=== PATIENT | female | born 1980 | race Caucasian/White ===

== ENCOUNTER 2017-10-31 13:32 | Emergency (ER) | payer OTHER ==
[2017-10-31] MEDS: ACETAMINOPHEN 500 MG TAB PO (15:05)
[2017-10-31] MEDS: IPRATROPIUM (NEB) 0.5 MG/2.5 ML AMP NEB (15:13)
[2017-10-31] MEDS: ALBUTEROL 0.083% (NEB) 2.5 MG/3 ML AMP NEB (15:13)
[2017-10-31 15:37] LABS: ADD UMIC NO; UR ASCORBIC ACID NEGATIVE (NEGATIVE); UR BILIRUBIN (Dip) NEGATIVE (NEGATIVE); UR BLOOD (Dip) NEGATIVE (NEGATIVE); UR CLARITY CLEAR (CLEAR); UR COLOR STRAW (YELLOW); UR GLUCOSE (Dip) NEGATIVE (NEGATIVE); UR KETONES (Dip) NEGATIVE (NEGATIVE); UR LEUKOCYTE ESTERASE (Dip) NEGATIVE Leu/ul (NEGATIVE); UR NITRITE (Dip) NEGATIVE (NEGATIVE); UR SPECIFIC GRAVITY (Dip) 1.009 (1.003-1.030); UR TOTAL PROTEIN (Dip) NEGATIVE (NEGATIVE); UR UROBILINOGEN (Dip) NEGATIVE (NEGATIVE)
== END 2017-10-31 16:15 | disposition home or self-care (01) ==
LOC: FTE 13:32
DX: J06.9 Acute upper respiratory infection, unspecified (principal); J45.909 Unspecified asthma, uncomplicated; I10 Essential (primary) hypertension
CPT/HCPCS: 71045; 81003; 94664; 99284-25

== ENCOUNTER 2017-11-08 21:02 | Emergency (ER) | payer OTHER ==
[2017-11-09 00:16] LABS: URINE BLOOD (Dip) POC Negative (NEGATIVE); URINE GLUCOSE (Dip) POC Negative (NEGATIVE); URINE KETONES (Dip) POC Negative (NEGATIVE); URINE LEUKOCYTE EST (Dip) POC Negative (NEGATIVE); URINE NITRITE (Dip) POC Negative (NEGATIVE); URINE TOTAL PROTEIN POC Negative (NEGATIVE)
[2017-11-09] MEDS: MECLIZINE 12.5 MG TAB PO (00:17)
== END 2017-11-09 01:27 | disposition home or self-care (01) ==
LOC: FTE 11-09 01:27
DX: R42 Dizziness and giddiness (principal); I10 Essential (primary) hypertension; J45.909 Unspecified asthma, uncomplicated
CPT/HCPCS: 81003; 81025; 99282

== ENCOUNTER 2018-09-23 08:15 | Day surgery (SDC) | payer OTHER | END 2018-09-23 16:46 | disposition home or self-care (01) | LOC: GIL 08:15 | DX: D12.5 Benign neoplasm of sigmoid colon (principal); D12.3 Benign neoplasm of transverse colon; K64.8 Other hemorrhoids; K29.30 Chronic superficial gastritis without bleeding; I10 Essential (primary) hypertension; J45.909 Unspecified asthma, uncomplicated; E66.01 Morbid (severe) obesity due to excess calories; Z68.41 Body mass index [BMI] 40.0-44.9, adult | CPT/HCPCS: 43239; 88305; 88312 ==

== ENCOUNTER 2018-10-15 05:22 | Day surgery (SDC) | payer OTHER ==
[2018-10-15] MEDS: LACTATED RINGER'S 1,000 ML IV (06:43)
[2018-10-15] MEDS ORDERED: DESFLURANE 15 MIN (07:30)
[2018-10-15] MEDS ORDERED: FENTAnyl 50 MCG/ML VIAL (07:34)
[2018-10-15] MEDS ORDERED: MIDAZOLAM 1 MG/ML 2 ML INJ (07:34)
[2018-10-15] MEDS ORDERED: ROCURONIUM 50 MG INJ (07:34)
[2018-10-15] MEDS ORDERED: METOCLOPRAMIDE 10 MG INJ (07:34)
[2018-10-15] MEDS ORDERED: PROPOFOL 20 ML (07:34)
[2018-10-15] MEDS ORDERED: ROPIVACAINE 0.2% 20 ML VIAL (07:52)
[2018-10-15] MEDS ORDERED: LIDOCAINE 2% (SDV) 5 ML INJ (07:56)
[2018-10-15] MEDS ORDERED: CLINDAMYCIN 600 MG/D5W (PMX) 50 ML IVPB (07:56)
[2018-10-15] MEDS ORDERED: SUGAMMADEX SODIUM 200 MG/2 ML VIAL IV (08:47)
[2018-10-15] MEDS ORDERED: ONDANSETRON 4 MG INJ (08:47)
[2018-10-15] MEDS ORDERED: GLYCOPYRROLATE 0.4 MG INJ (08:49)
[2018-10-15] MEDS ORDERED: NEOSTIGMINE 3 MG/3 ML SYRINGE (08:49)
[2018-10-15] MEDS ORDERED: HYDROmorphONE 2 MG/ML SYG (08:57)
[2018-10-15] MEDS: POLYMYXIN/BACITRACIN 1L IRRIG IRR (09:05)
[2018-10-15] MEDS: BUPIVACAINE 0.5%/EPI (SDV) 10 ML INJ (09:05)
[2018-10-15] MEDS ORDERED: ONDANSETRON 4 MG INJ IV (09:30)
[2018-10-15] MEDS ORDERED: FENTAnyl 50 MCG/ML VIAL IV (09:30)
[2018-10-15] MEDS ORDERED: MEPERIDINE 25 MG INJ IV (09:30)
[2018-10-15] MEDS ORDERED: PROCHLORPERAZINE 10 MG INJ IV (09:30)
[2018-10-15] MEDS ORDERED: OXYCODONE/ACETAMINOPHEN (5/325) TAB PO (09:30)
[2018-10-15] MEDS ORDERED: HYDROmorphONE 1 MG/5 ML IV SYRINGE IV (09:30)
[2018-10-15] MEDS ORDERED: BUPIVACAINE 0.25% (MPF) 30 ML INJ (10:12)
[2018-10-15] MEDS ORDERED: BUPIVACAINE 0.25%/EPI (SDV) 10 ML INJ (10:12)
== END 2018-10-15 19:00 | disposition home or self-care (01) ==
LOC: SDS 05:22
DX: M24.171 Other articular cartilage disorders, right ankle (principal); I10 Essential (primary) hypertension; J45.909 Unspecified asthma, uncomplicated
CPT/HCPCS: 29891; 73600; 73610-RT

== ENCOUNTER 2018-10-18 13:25 | Emergency (ER) | payer OTHER ==
[2018-10-18] MEDS: BACITRACIN 0.5%/ZINC 28.35 GM OINT TOP (15:19)
== END 2018-10-18 15:35 | disposition home or self-care (01) ==
LOC: FTE 13:25
DX: L29.9 Pruritus, unspecified (principal); I10 Essential (primary) hypertension; T78.49XA Other allergy, initial encounter
CPT/HCPCS: 29515; 99282-25

== ENCOUNTER 2018-10-26 10:26 | Emergency (ER) | payer OTHER ==
[2018-10-26] MEDS: ONDANSETRON (ODT) 4 MG TAB ODT (11:07)
[2018-10-26] MEDS: DICYCLOMINE 10 MG CAP PO (11:07)
[2018-10-26 11:28] LABS: URINE BLOOD (Dip) POC Negative (NEGATIVE); URINE GLUCOSE (Dip) POC Negative (NEGATIVE); URINE KETONES (Dip) POC Trace (NEGATIVE); URINE LEUKOCYTE EST (Dip) POC Negative (NEGATIVE); URINE NITRITE (Dip) POC Negative (NEGATIVE); URINE TOTAL PROTEIN POC Trace (NEGATIVE)
[2018-10-26 11:28] LABS: URINE PH (Dip) POC 5.5 (5.0-8.5)
== END 2018-10-26 12:20 | disposition home or self-care (01) ==
LOC: FTE 10:26
DX: R19.7 Diarrhea, unspecified (principal); I10 Essential (primary) hypertension; R30.0 Dysuria
CPT/HCPCS: 81003; 81025; 99283